=== PATIENT | male | born 1965 | race Caucasian/White ===

== ENCOUNTER → 2023-02-28 13:37 | Outpatient (CLI) | payer OTHER, SELFPAY ==
--- NOTE | ~2023-02-28 | XR_ITS ---
EXAM: XR shoulder RT min 2V, XR shoulder LT min 2V DATE: 02/28/2023 13:53 HISTORY: acute pain of both shoulders . COMPARISON: None available. FINDINGS: Normal mineralization. No fracture or dislocation. No lytic or blastic lesion. Moderate le ft and mild right AC joint hypertrophy. Mild osteophytosis of the right glenoid. No erosion or perios teal change. Soft tissues within normal limits. 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 Mild right glenohumeral osteoarthri tis. Reviewed, dictated and finalized at location K. 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 Mild right gl enohumeral osteoarthritis.
== END ==
DX: M19.011 Primary osteoarthritis, right shoulder (principal); M19.012 Primary osteoarthritis, left shoulder
CPT/HCPCS: 73030